=== PATIENT | female | born 1990 | race Hispanic/Latino ===

== ENCOUNTER → 2023-06-28 09:32 | Outpatient (REF) | payer OTHER, SELFPAY ==
[2023-06-28 10:42] LABS: ALT (SGPT) 19 U/L (0-35); AST (SGOT) 25 U/L (14-36); Alkaline Phosphatase 90 U/L (38-126); Blood Urea Nitrogen 11 mg/dl (7-17); Calcium 9.5 mg/dl (8.4-10.2); Carbon Dioxide 22 mmol/L (22-30); Chloride 107 mmol/L (98-107); Glucose 103 mg/dl (70-99); Potassium 4.6 mmol/L (3.5-5.1); Sodium 137 mmol/L (135-145); Total Bilirubin 0.3 mg/dl (0.2-1.3); Total Protein 6.7 g/dl (6.3-8.2); eGFR > 60.00
[2023-06-28 10:58] LABS: Vitamin D, 25-OH*** 25.6 ng/mL (30-80)
[2023-06-28 13:07] LABS: Glycohemoglobin (HgbA1c) 5.7 % (4.0-5.6)
== END ==
LOC: CLINIC 09:32
PROVIDERS: ATTENDING PHYSICIAN Nurse Practitioner Adult Health
DX: R73.03 Prediabetes (principal); E55.9 Vitamin D deficiency, unspecified
CPT/HCPCS: 36415; 80053; 82306; 83036

== ENCOUNTER → 2023-09-27 08:14 | Outpatient (REF) | payer OTHER, SELFPAY ==
[2023-09-27 10:13] LABS: Vitamin D, 25-OH*** 27.8 ng/mL (30-80)
== END ==
LOC: CLINIC 08:14
PROVIDERS: ATTENDING PHYSICIAN Nurse Practitioner Adult Health
DX: E55.9 Vitamin D deficiency, unspecified (principal)
CPT/HCPCS: 36415; 82306

== ENCOUNTER → 2023-11-19 09:46 | Outpatient (REF) | payer OTHER, SELFPAY | LOC: RAD 09:46 | PROVIDERS: ATTENDING PHYSICIAN Podiatrist Foot & Ankle Surgery | DX: M79.671 Pain in right foot (principal) | CPT/HCPCS: 73630 ==

== ENCOUNTER 2024-04-17 20:04 | Emergency (ER) | payer OTHER, SELFPAY ==
[2024-04-17 20:04] VITALS: BMI 41.7
[2024-04-17 20:07] VITALS: BP 130/88
--- NOTE | 2024-04-17 20:44 | ED.GENMED ---
History of Present Illness
General
Chief Complaint: Abdominal Symptoms
Source: patient
Exam Limitations: none
Time Seen by Provider: 04/17/24 20:35
History of Present Illness
History of Present Illness:
33-year-old otherwise healthy female presents complaining of onset of nausea vomiting and diarrhea earlier this morning. She cannot keep anything in or down. She denies any blood in the vomit or stool. Her temperature was 100.1 at home. No known
sick contacts. She denies any significant constant abdominal pain but does note occasional cramps.
Past History
Past History
ED Past Medical History: None
ED Past Surgical History: None
Social History
Tobacco: Non-smoker
Alcohol: None
Personal:
Living: with family
Family History
Family History: Unable to obtain
Phy Exam
Physical Exam
Physical Exam:
General: Well-appearing female no acute respiratory distress
HEENT: Normocephalic atraumatic heart: Regular rate and rhythm no murmurs
Lungs: Clear no wheeze dorsalis abdomen is soft nontender nondistended no guarding or rebound
Extremities: No cyanosis
Course
Orders/Labs/Results
Orders:
Orders
04/17/24 20:43
0.9% Sodium Chloride 1000 ml [Nss] 1,000 ml IV BOLUS
Ondansetron Injectable [Zofran] 4 mg IV NOW STA
04/17/24 20:44
Test Result ONCE
04/17/24 21:36
Complete Blood Count/With Diff Urgent
04/17/24 21:56
Comprehensive Metabolic Panel Urgent
HCG, Serum Qualitative Screen Urgent
Lipase Urgent
04/17/24 22:00
Famotidine [Pepcid] 20 mg IV HS
Abnormal Lab Results
04/17/24
21:36
MCV 79.4 L fL
(81.0-99.0)
MCH 26.6 L pg
(27.0-31.0)
Neutrophils % 79.4 H %
(42.2-75.2)
Lymphocytes % 14.7 L %
(20.5-51.1)
04/17/24 21:36
04/17/24 21:56
Vital Signs
Initial and Last Documented VS:
Initial Vital Signs
Temp Pulse Resp BP Pulse Ox
99.3 F 119 16 130/88 100
04/17/24 20:07 04/17/24 20:07 04/17/24 20:07 04/17/24 20:07 04/17/24 20:07
Last Documented Vital Signs
Temp Pulse Resp BP Pulse Ox
99.3 F 110 20 147/88 93
04/17/24 20:07 04/17/24 22:00 04/17/24 21:52 04/17/24 23:00 04/17/24 23:15
MDM/Problems Addressed
Differential Diagnosis Includes:
Nausea vomiting diarrhea. Likely from viral illness. Abdomen exam benign no indication for imaging but will check for electrolyte abnormality with blood work. Treat symptoms with fluids Zofran Pepcid.
*Critical Care Note
Total Time (30-74mins, 75-104mins- exclusive of procedures): Not Applicable
Update Note
Update Note:
X-rays personally visualized and reviewed by radiology. There is no acute fracture. Patient reassured. Suspect deep contusion. Patient still quite a bit of pain after Toradol and Valium. Will prescribe a tablet of that for here for pain relief
and will send patient home with medications to take. Stable for the
ED Attending Note
-
Portions of this chart may have been created with voice recognition software.� Occasional wrong word or��sound alike� substitutions may have occurred due to the inherent limitations of voice recognition software.
Discharge Plan
Departure
Patient Disposition: Home (Routine Discharge)
Date of Disposition: 04/18/24
Time of Disposition: 00:20
Patient with high blood pressure during this ER visit?: No
Discharge Problem:
Vomiting
Instructions: Clear Liquid Diet
Prescriptions:
New
ondansetron 4 mg tablet,disintegrating
4 mg PO Q8H PRN (Reason: nausea and vomiting) Qty: 10 0RF
No Action
sertraline
100 mg PO DAILY
ondansetron HCl 4 mg tablet
4 mg PO Q8H PRN (Reason: nausea and vomiting) Qty: 10 0RF
pantoprazole [Protonix] 40 mg tablet,delayed release (DR/EC)
40 mg PO DAILY Qty: 30 0RF
Rx Instructions:
Please take 30 minutes prior to eating or drinking anything in the morning.
Referrals:
UNKNOWN - PT DOES,NOT KNOW [Family Provider] -
Activity Restrictions/Additional Instructions:
Drink plenty clear liquids. Use Zofran if needed for nausea. Return if worse otherwise follow-up with your doctor
Interventions
Interventions:
*Risk Screen - Suicide Last Done: 04/17/24 23:30
*General Assessment Last Done: 04/17/24 20:07
*Neglect/Abuse Screening Last Done: 04/17/24 23:30
*ED COVID-19 Vaccine History Last Done: 04/17/24 20:07
[facility] Assessment Last Done: 04/17/24 23:30
Discharge Date and Time
Discharge Date/Time: 04/18/24 00:24
Print Language: IRISH
[2024-04-17] MEDS: ZOFRAN 4 MG IV (21:28)
[2024-04-17] MEDS: PEPCID 20 MG IV (21:28)
[2024-04-17] MEDS: NSS 1000 IV (21:29)
[2024-04-17 21:32] VITALS: BP 116/77
[2024-04-17 21:52] VITALS: BP 116/77
[2024-04-17 22:00] VITALS: BP 134/88
[2024-04-17 22:09] LABS: % Basophils 0.1 % (0-2); % Eosinophils 0.6 % (0-6); % Immature Granulocytes 0.1 % (0-0.5); % Lymphocytes 14.7 % (20.5-51.1); % Monocytes 5.1 % (1.7-9.3); % Neutrophils 79.4 % (42.2-75.2); Absolute Eosinophils 0.1 10^3/uL (0-0.7); Absolute Lymphocytes 1.2 10^3/uL (1.2-3.4); Absolute Monocytes 0.4 10^3/uL (0.1-0.6); Absolute Neutrophils 6.4 10^3/uL (1.4-6.5); Hematocrit 39.7 % (37.0-47.0); Hemoglobin 13.3 g/dL (12.0-16.0); Mean Corp Hgb Conc. 33.5 g/dL (33.0-37.0); Mean Corpuscular Hgb 26.6 pg (27.0-31.0); Mean Corpuscular Volume 79.4 fL (81.0-99.0); Nucleated Red Blood Cells % 0 %; Red Cell Dist. Width 13.5 % (11.5-14.5)
[2024-04-17 22:17] LABS: HCG, Serum Qualitative Screen Negative
[2024-04-17 22:20] LABS: ALT (SGPT) 32 U/L (0-35); AST (SGOT) 31 U/L (14-36); Albumin 3.6 g/dl (3.5-5.0); Alkaline Phosphatase 71 U/L (38-126); Blood Urea Nitrogen 14 mg/dl (7-17); Calcium 8.5 mg/dl (8.4-10.2); Carbon Dioxide 22 mmol/L (22-30); Chloride 106 mmol/L (98-107); Estimated Creatinine Clearance > 125 ml/min; Glucose 93 mg/dl (70-99); Lipase 60 U/L (23-300); Potassium 3.7 mmol/L (3.5-5.1); Sodium 136 mmol/L (135-145); Total Bilirubin 0.4 mg/dl (0.2-1.3); Total Protein 6.4 g/dl (6.3-8.2); eGFR > 60.00
[2024-04-17 23:00] VITALS: BP 147/88
[2024-04-17 23:18] LABS: Platelet Count 191 10^3/uL (130-400)
[2024-04-18] VITALS: BP 120/64
== END 2024-04-18 00:24 | disposition home or self-care (01) ==
LOC: EMR 20:04
PROVIDERS: Physician Assistant; EMERGENCY PHYSICIAN Emergency Medicine
DX: R11.2 Nausea with vomiting, unspecified (principal); R19.7 Diarrhea, unspecified
CPT/HCPCS: 96374; 96375; 96361; 99284; 80053; 83690; 84703; 85025

== ENCOUNTER → 2024-05-03 10:04 | Outpatient (REF) | payer OTHER, SELFPAY ==
[2024-05-03 11:27] LABS: ALT (SGPT) 32 U/L (0-35); AST (SGOT) 25 U/L (14-36); Albumin 4.2 g/dl (3.5-5.0); Alkaline Phosphatase 87 U/L (38-126); Blood Urea Nitrogen 14 mg/dl (7-17); Calcium 9.3 mg/dl (8.4-10.2); Carbon Dioxide 21 mmol/L (22-30); Chloride 105 mmol/L (98-107); Glucose 109 mg/dl (70-99); Potassium 4.6 mmol/L (3.5-5.1); Sodium 132 mmol/L (135-145); Total Bilirubin 0.4 mg/dl (0.2-1.3); Total Protein 6.8 g/dl (6.3-8.2); eGFR > 60.00
[2024-05-03 11:31] LABS: Glycohemoglobin (HgbA1c) 5.9 % (4.0-5.6)
[2024-05-03 11:44] LABS: Vitamin D, 25-OH*** 15.2 ng/mL (30-80)
== END ==
LOC: CLINIC 10:04
PROVIDERS: ATTENDING PHYSICIAN Nurse Practitioner Adult Health
DX: R73.03 Prediabetes (principal); E55.9 Vitamin D deficiency, unspecified
CPT/HCPCS: 36415; 80053; 82306; 83036